=== PATIENT | female | born 1980 | race Caucasian/White ===

== ENCOUNTER 2017-02-28 17:18 | Emergency (ER) | payer OTHER ==
[2017-02-28 17:26] VITALS: BP 137/88
[2017-02-28] MEDS ORDERED: Ketorolac INJ* 60 MG/2 ML VIAL IM ONE (17:46)
[2017-02-28] MEDS ORDERED: Ondansetron ODT TAB* 4 MG PO ONE (17:47)
--- NOTE | 2017-02-28 17:52 | UC ---
Headache HPI - HPI Summary HPI Summary: headaches x 3 day + sinus pain and pressure, nasal congestion + pnd, no fever, no chills, no cough, + nausea - History Of Current Complaint Chief Complaint: UCRespiratory Stated Complaint: SINUS Time Seen by Provider: 02/28/17 17:29 Hx Obtained From: Patient Hx Last Menstrual Period: 02/24/17 Onset/Duration: Gradual Onset, Lasting Days - 3, Still Present Onset Of Symptoms: Gradual Initially Headache Was: Moderate Currently Pain Is: Severe Timing: Constant Character: Throbbing Location of Headache: Frontal Aggravating Factor: Bright Lights Allevating Factors: Nothing Associated Signs And Symptoms: Positive: Nausea, Sinus Pressure. Negative: Dizziness, Seizure, Vomiting, Fever, Neck Pain, Neck Stiffness, Decreased LOC, Visual Changes - Allergies/Home Medications Allergies/Adverse Reactions: Allergies Allergy/AdvReac Type Severity Reaction Status Date / Time No Known Allergies Allergy Verified 02/28/17 17:26 PMH/Surg Hx/FS Hx/Imm Hx Previously Healthy: Yes Respiratory History: Other - sleep apnea Other Respiratory History: sleep apnea - Surgical History Surgery Procedure, Year, and Place: 2013-[facility] [place] - Family History Known Family History: Negative: Diabetes - Social History Alcohol Use: None Substance Use Type: None Substance Use Comment - Amount & Last Used: [place] Patch Smoking Status (MU): Former Smoker Type: Cigarettes Amount Used/How Often: 1/2 PPD Length of Time of Smoking/Using Tobacco: since age 15 Have You Smoked in the Last Year: Yes When Did the Patient Quit Smoking/Using Tobacco: February 2016' Household Exposure Type: Cigarettes Review of Systems Constitutional: Negative Skin: Negative Eyes: Negative ENT: Sinus Congestion, Sinus Pain/Tenderness Respiratory: Negative Cardiovascular: Negative Gastrointestinal: Negative Neurological: Headache All Other Systems Reviewed And Are Negative: Yes Physical Exam Triage Information Reviewed: Yes Appearance: Well-Appearing, Well-Nourished, Pain Distress Vital Signs: Initial Vital Signs Temp 98.4 F 02/28/17 17:22 Pulse 60 02/28/17 17:22 Resp 16 02/28/17 17:22 BP 137/88 02/28/17 17:22 Pulse Ox 100 02/28/17 17:22 Vital Signs Reviewed: Yes Eyes: Positive: Conjunctiva Clear, Other: - photophobia ENT: Positive: Normal ENT inspection, Hearing grossly normal, Pharynx normal, Nasal drainage - clear Neck: Positive: Supple, Nontender, No Lymphadenopathy Respiratory: Positive: Chest non-tender, Lungs clear, Normal breath sounds Cardiovascular: Positive: RRR, No Murmur, Pulses Normal Abdominal Exam: Normal Musculoskeletal Exam: Normal Skin Exam: Normal UC Physical Exam Vital Signs On Initial Exam: Initial Vitals Temp Pulse Resp BP Pulse Ox 98.4 F 60 16 137/88 100 02/28/17 17:22 02/28/17 17:22 02/28/17 17:22 02/28/17 17:22 02/28/17 17:22 - Neurological Exam Neurological: Normal, Sensory/Motor Intact, Alert, Oriented to Person Place, Time, CN Intact II-III, Normal Gait, Speech Normal Headache Course/Dx - Differential Dx/Diagnosis Provider Diagnoses: headaches. sinusitis Discharge - Discharge Plan Condition: Stable Disposition: HOME Prescriptions: Amoxicillin/Clavulanate TAB* [Augmentin TAB 875*] 875 mg PO BID #20 tab Patient Education Materials: Sinusitis (ED), Acute Headache (ED) Referrals: Gerard Delvalle MD [Primary Care Provider] - 7 Days
== END 2017-02-28 18:31 | disposition home or self-care (01) ==
LOC: UCCORT 17:18
DX: J32.9 Chronic sinusitis, unspecified (principal); R51 Headache; G47.30 Sleep apnea, unspecified; F17.210 Nicotine dependence, cigarettes, uncomplicated
CPT/HCPCS: 99212; A9270-GY; G0463; J1885